=== PATIENT | female | born 1975 | race Hispanic/Latino ===

== ENCOUNTER 2019-01-20 08:31 | Day surgery (SDC) | payer BC ==
[2019-01-18 17:34] LABS: BASOPHILS % (AUTO) 0.5 % (0.0-5.0); EOSINOPHILS % (AUTO) 1.9 % (0.0-8.0); HEMATOCRIT 35.7 % (36-48); LYMPHOCYTES % (AUTO) 6.9 % (21.0-51.0); MEAN CORPUSCULAR HEMOGLOBIN 29.7 pg (27.0-33.0); MEAN CORPUSCULAR HGB CONC 34.3 g/dL (32.0-36.0); MEAN CORPUSCULAR VOLUME 86.5 fL (79-99); NEUTROPHILS % (AUTO) 75.7 % (40.0-77.0); NUCLEATED RED BLOOD CELLS 0.1 % (0.0-0.19); PLATELET COUNT (AUTO) 181 K/uL (130-400); RED BLOOD CELL COUNT(AUTO) 4.13 MIL/uL (4.00-5.50); RED CELL DISTRIBUTION WIDTH 12.9 % (11.0-15.5); WHITE BLOOD COUNT (AUTO) 3.3 K/uL (4.8-10.8)
[2019-01-20] VITALS (18 sets, daily range): BP systolic 90–108; BP diastolic 52–77
[~2019-01-20 08:31] MED LIST: CEFTRIAXONE SODIUM 1 GM IVP ONE; PHENERG
[2019-01-20] MEDS ORDERED: LACTATED RINGERS 1000ML 1,000 ML IV ONE (09:30)
[2019-01-20] MEDS ORDERED: CEFTRIAXONE SODIUM 1 GM ONE (09:30)
[2019-01-20] MEDS ORDERED: IOHEXOL-350 50ML VIAL IV ONE (09:43)
[2019-01-20] MEDS ORDERED: ONDANSETRON HCL 4 MG/2 ML VIAL ONE (11:22)
[2019-01-20] MEDS ORDERED: PROPOFOL 10 MG/ML 20ML VIAL IV ONE (11:22)
[2019-01-20] MEDS ORDERED: FENTANYL CITRATE PF 50 MCG/1 ML 2ML VIAL ONE (11:22)
[2019-01-20] MEDS ORDERED: LIDOCAINE PF 2% 5ML ABBOJECT ONE (11:22)
--- NOTE | 2019-01-20 13:22 | NUR ---
RECEIVE PT RECEIVED FROM PACU VIA STRETCHER AWAKE ALERT ORIENTED X3. PT STABLE. NO COMPLAINTS MADE. STATED SHE HAS THE URGE TO VOID, EXPLAINED SHE HAS LICEA CATH ON AND WILL BE REMOVED SHORTLY. 16 FR LICEA CATH IN PLACE DRAINING CLEAR YELLOW URINE, 450 ML. CALL MASTERSON WITHIN REACH, WILL CALL FOR TO COME IN TO ROOM.
--- NOTE | 2019-01-20 13:30 | NUR ---
LICEA CATH LICEA CATHETER DISCONTINUED WITHOUT ANY COMPLICATIONS.
[2019-01-20] MEDS ORDERED: PHENAZOPYRIDINE HCL 200 MG TABLET ONE (13:39)
--- NOTE | 2019-01-20 14:15 | NUR ---
DISCHARGE PT DISCHARGED VIA WHEELCHAIR WITH . PT STABLE. PT VOIDED X3, PT STATES HER URINE WAS CLEAR YELLOW. DISCHARGE INSTRUCTIONS GIVEN TO AND PT, VERBALIZED UNDERSTANDING.
== END 2019-01-20 14:15 | disposition home or self-care (01) ==
LOC: DAH 08:31
PROVIDERS: ATTEND Urology
DX: N13.30 Unspecified hydronephrosis (principal); Z85.41 Personal history of malignant neoplasm of cervix uteri; Z98.890 Other specified postprocedural states; Z79.899 Other long term (current) drug therapy
CPT/HCPCS: 36415; 52332; 74420; 85025; A4344; A4358; A4510; A4600; A6207; C1758; C1769; C2617; J0696; J2001; J2405; J2704; J3010; J7120 ×2; Q9967

== ENCOUNTER → 2019-12-12 | Outpatient (CLI) | payer BC ==
[~2019-12-12] MED LIST changes: -CEFTRIAXONE SODIUM 1 GM IVP ONE; +IOHEXOL-350 75 ML VIAL IV ONE
== END | disposition home or self-care (01) ==
LOC: RAH 08:59
PROVIDERS: ATTEND Internal Medicine
DX: T81.31XA Disruption of external operation (surgical) wound, not elsewhere classified, initial encounter (principal); N13.30 Unspecified hydronephrosis; Z90.49 Acquired absence of other specified parts of digestive tract; Z90.710 Acquired absence of both cervix and uterus; Z90.89 Acquired absence of other organs; Y93.89 Activity, other specified; Y92.89 Other specified places as the place of occurrence of the external cause; Y99.8 Other external cause status
CPT/HCPCS: 74177; Q9967

== ENCOUNTER 2020-05-03 06:19 | Day surgery (SDC) | payer BC ==
[2020-04-30 13:06] LABS: BASOPHILS % (AUTO) 0.5 % (0.0-5.0); EOSINOPHILS % (AUTO) 1.4 % (0.0-8.0); HEMATOCRIT 32.7 % (36-48); LYMPHOCYTES % (AUTO) 13.8 % (21.0-51.0); MEAN CORPUSCULAR HEMOGLOBIN 31.9 pg (27.0-33.0); MEAN CORPUSCULAR HGB CONC 33.3 g/dL (32.0-36.0); MEAN CORPUSCULAR VOLUME 95.6 fL (79-99); MONOCYTES % (AUTO) 11.1 % (3.0-13.0); NEUTROPHILS % (AUTO) 72.3 % (40.0-77.0); PLATELET COUNT (AUTO) 202 K/uL (130-400); RED BLOOD CELL COUNT(AUTO) 3.42 MIL/uL (4.00-5.50); RED CELL DISTRIBUTION WIDTH 12.9 % (11.0-15.5); WHITE BLOOD COUNT (AUTO) 5.6 K/uL (4.8-10.8)
[2020-04-30 13:27] VITALS: BP 105/56
[2020-05-03] VITALS (18 sets, daily range): BP systolic 92–102; BP diastolic 51–81
[~2020-05-03] VITALS: Ht 172.7 cm; Wt 58.6 kg
[2020-05-03] MEDS: CEFTRIAXONE SODIUM 1 GM IVP SCH ×2 (06:00→08:20)
--- NOTE | 2020-05-03 07:00 | NUR ---
PRE-PROCEDURE RECEIVED TO HOLDING BAY 3. AWAKE IN NO ACUTE DISTRESS. SIDE RAILS UP X2, BED IN LOWEST POSITION, AND CALL LIGHT W/IN REACH. PER PT SHE HAS WOUND TO ABDOMEN FROM PREVIOUS EXP. LAP COVERED WITH DRESSING. COLOSTOMY TO LLQ.
[2020-05-03] MEDS ORDERED: LACTATED RINGERS 1000ML 1,000 ML IV ONE (07:07)
--- NOTE | 2020-05-03 07:30 | NUR ---
TEDS/SCDS PLACED.
--- NOTE | 2020-05-03 07:38 | NUR ---
BELONGINGS BELONGINGS SENT TO SECURITY.
[2020-05-03] MEDS ORDERED: IOHEXOL-350 50ML VIAL IV ONE (07:46)
[2020-05-03] MEDS ORDERED: ONDANSETRON HCL 4 MG/2 ML VIAL ONE (07:47)
[2020-05-03] MEDS ORDERED: MIDAZOLAM HCL 1 MG/ML 2ML VIAL ONE (07:47)
[2020-05-03] MEDS ORDERED: PROPOFOL 10 MG/ML 20ML VIAL IV ONE (07:47)
[2020-05-03] MEDS ORDERED: DEXAMETHASONE SOD PHOSPHATE 10MG/ML 1ML VIAL ONE (07:47)
[2020-05-03] MEDS ORDERED: LIDOCAINE PF 2% 5ML ABBOJECT ONE (07:47)
[2020-05-03] MEDS ORDERED: IBUP-1493 PO (07:47)
[2020-05-03] MEDS ORDERED: FENTANYL CITRATE PF 50 MCG/1 ML 2ML VIAL ONE (07:48)
[2020-05-03] MEDS ORDERED: EPHEDRINE SULFATE 50 MG/ML AMPULE ONE (08:34)
--- NOTE | 2020-05-03 10:04 | NUR ---
POST-PROCEDURE RECEIVED FROM RR TO DAY 15. AWAKE IN NO ACUTE DISTRESS. PT LITTLE ANXIOUS BEING W/O HER . CONNECTED TO CONTINUOUS CARDIOPULMONARY MONITORING. STRETCHER IN LOWEST POSITION, CALL LIGHT W/IN REACH, AND SIDE RAILS UP X2.
--- NOTE | 2020-05-03 10:10 | NUR ---
LICEA 10ML OF STERILE WATER REMOVED. LICEA CATH DC'D INTACT. TOLERATED W/O COMPLICATIONS.
[2020-05-03] MEDS ORDERED: PHENAZOPYRIDINE HCL 200 MG TABLET ONE (10:30)
--- NOTE | 2020-05-03 10:30 | NUR ---
ACTIVITY UP TO RR WITH STANDBY ASSIST X1. GAIT STEADY. DENIES DIZZINESS.
--- NOTE | 2020-05-03 11:00 | NUR ---
DISCHARGE DAY PT DISCHARGE INSTRUCTION SHEET, MED REC, AND PT SUMMARY REVIEWED WITH PTS MARQUIS ALVAREZ. VERBALIZED UNDERSTANDING. OPPORTUNITY GIVEN TO ASK QUESTIONS. NO QUESTIONS ADDRESSED.
--- NOTE | 2020-05-03 11:10 | NUR ---
DISCHARGE DISCHARGED VIA W/C. AWAKE IN NO ACUTE DISTRESS.
== END 2020-05-03 11:09 | disposition home or self-care (01) ==
LOC: DAH 06:19
PROVIDERS: ATTEND Urology
DX: N13.1 Hydronephrosis with ureteral stricture, not elsewhere classified (principal); Z85.41 Personal history of malignant neoplasm of cervix uteri; Z90.722 Acquired absence of ovaries, bilateral
CPT/HCPCS: 36415; 52332; 74420; 85025; A4213; A4215; A4221; A4222; A4223; A4344; A4510; A4600; A4663; A5113; A6260; C1758; C1769; C2617; J0696; J1100; J2001; J2250; J2405; J2704; J3010; J3490; J7030; J7120; Q9967; U0003